=== PATIENT | male | born 1990 | race Caucasian/White ===

== ENCOUNTER 2016-12-08 00:42 | Emergency (ER) | payer SELFPAY ==
[~2016-12-08] VITALS: Ht 167.6 cm; Wt 75.4 kg
[~2016-12-08 00:42] MED LIST: AMOXICILLIN500 M1 OR; AMOXICILLIN500 MG PO; DENIES CURRENT MEDS; LORTAB 1010 MG PO
[2016-12-08 01:52] LABS: HEMATOCRIT 43.5 % (39.0-50.0); HEMOGLOBIN 15.7 g/dl (14.0-18.0); IMMATURE GRANULOCYTES 0.2 % (0.0-1.0); MEAN CELL VOLUME 90.6 fL CALC (80.0-100.0); MEAN CORPUSCULAR HGB 32.7 pG CALC (26.0-32.0); MEAN CORPUSCULAR HGB CONC 36.1 g/L CALC (32.0-36.0); NEUT# 4.22 thou/uL (1.82-7.42); RED BLOOD COUNT 4.8 mill/uL (4.70-6.10); RED CELL DISTRI WIDTH 12.1 % (11.5-15.5)
[2016-12-08 01:53] LABS: URINE BILIRUBIN - DIPSTICK NEGATIVE (NEGATIVE); URINE BLOOD DIPSTICK NEGATIVE (NEGATIVE); URINE CLARITY CLEAR; URINE COLOR YELLOW; URINE GLUCOSE - DIPSTICK NEGATIVE (NEGATIVE); URINE KETONE NEGATIVE (NEGATIVE); URINE LEUK ESTERASE NEGATIVE (NEGATIVE); URINE NITRITE - DIPSTICK NEGATIVE (Negative); URINE PROTEIN - DIPSTICK NEGATIVE (NEG-TRACE); URINE SPECIFIC GRAVITY <=1.005; URINE UROBILINOGEN - DIPSTICK 0.2 E.U./dL (0.2)
[2016-12-08 01:59] LABS: BARBITURATES NEGATIVE (NEGATIVE); COCAINE NEGATIVE (NEGATIVE); METHADONE NEGATIVE (NEGATIVE); OXCYCODONE NEGATIVE (NEGATIVE); TETRAHYDROCANNABIONOL NEGATIVE (NEGATIVE); TRICYLIC ANTIDEPRESSANTS NEGATIVE (NEGATIVE)
[2016-12-08 02:00] LABS: ALBUMIN 4.4 g/dL (3.2-5.0); ALKALINE PHOSPHATASE 36 u/l (38-126); ANION GAP 17 (6-22 (CALC)); BILIRUBIN, TOTAL 0.7 mg/dL (0.0-1.4); BUN 11 mg/dL (9-20); BUN/CREATININE RATIO 14 (12-20 (CALC)); CALCIUM 9.4 mg/dL (8.4-10.2); CARBON DIOXIDE 27 mmol/l (22-30); CHLORIDE 103 mmol/l (95-108); CREATININE 0.8 mg/dL (0.7-1.3); GFR > 60 ML/MIN (>=60 (CALC)); GFR FOR AFR.AMER. > 60 ML/MIN (>=60 (CALC)); GLUCOSE 98 mg/dL (75-110); POTASSIUM 3.7 mmol/l (3.5-5.1); SGOT/AST 22 u/l (17-59); SGPT/ALT 57 u/l (21-72); SODIUM 144 mmol/l (137-146)
[2016-12-08 02:01] LABS: ETHYL ALCOHOL < 10 mg/dl (0-30)
[2016-12-08 05:28] VITALS: BP 110/48
== END 2016-12-08 05:35 | DRG 880 ==
LOC: ED 00:42
PROVIDERS: Emergency Medicine
DX: R45.851 Suicidal ideations (principal); F32.9 Major depressive disorder, single episode, unspecified; E05.90 Thyrotoxicosis, unspecified without thyrotoxic crisis or storm; F17.210 Nicotine dependence, cigarettes, uncomplicated

== ENCOUNTER 2018-12-19 12:06 | Emergency (ER) | payer SELFPAY ==
[~2018-12-19] VITALS: Ht 167.6 cm; Wt 70.0 kg
[2018-12-19] MEDS ORDERED: MEDDOSEPAK PO ×2 (13:38→13:51)
[2018-12-19 13:52] VITALS: BP 118/64
== END 2018-12-19 13:52 | disposition home or self-care (01) | DRG 552 ==
LOC: ED 12:06
DX: S32.019A Unspecified fracture of first lumbar vertebra, initial encounter for closed fracture (principal); F17.200 Nicotine dependence, unspecified, uncomplicated; W18.30XA Fall on same level, unspecified, initial encounter

== ENCOUNTER 2019-09-24 01:23 | Emergency (ER) | payer SELFPAY ==
[~2019-09-24] VITALS: Ht 167.6 cm; Wt 77.2 kg
[~2019-09-24 01:23] MED LIST changes: +MEDDOSEPAK PO
[2019-09-24 01:35] VITALS: BP 152/72
[2019-09-24] MEDS ORDERED: BACTRIM DS1 TAB PO (01:52)
== END 2019-09-24 02:00 | disposition home or self-care (01) | DRG 603 ==
LOC: ED 01:23
DX: L03.116 Cellulitis of left lower limb (principal); F15.10 Other stimulant abuse, uncomplicated; F17.210 Nicotine dependence, cigarettes, uncomplicated; Z86.14 Personal history of Methicillin resistant Staphylococcus aureus infection

== ENCOUNTER 2019-10-21 01:50 | Emergency (ER) | payer SELFPAY ==
[~2019-10-21] VITALS: Ht 167.6 cm; Wt 72.7 kg
[~2019-10-21 01:50] MED LIST changes: +BACTRIM DS1 TAB PO
[2019-10-21 02:30] LABS: HEMATOCRIT 44.2 % (39.0-50.0); HEMOGLOBIN 14.8 g/dl (14.0-18.0); IMMATURE GRANULOCYTES 0.4 % (0.0-5.0); MEAN CELL VOLUME 90.4 fL CALC (80.0-100.0); MEAN CORPUSCULAR HGB 30.3 pG CALC (26.0-32.0); MEAN CORPUSCULAR HGB CONC 33.5 g/dL CAL (32.0-36.0); NEUT# 5.57 thou/uL (1.82-7.42); RED BLOOD COUNT 4.89 mill/uL (4.70-6.10); RED CELL DISTRI WIDTH 12.6 % (11.5-15.5)
[2019-10-21 02:44] LABS: ALBUMIN 4.5 g/dL (3.2-5.0); ALKALINE PHOSPHATASE 47 u/l (38-126); ANION GAP 14 (6-22 (CALC)); BILIRUBIN, TOTAL 0.7 mg/dL (0.0-1.4); BUN 14 mg/dL (9-20); BUN/CREATININE RATIO 18 (12-20 (CALC)); CARBON DIOXIDE 28 mmol/l (22-30); CHLORIDE 102 mmol/l (95-108); CREATININE 0.8 mg/dL (0.7-1.3); ETHYL ALCOHOL 0 mg/dl (0-30); GFR > 60 ML/MIN (>=60 (CALC)); GFR FOR AFR.AMER. > 60 ML/MIN (>=60 (CALC)); POTASSIUM 3.8 mmol/l (3.5-5.1); SGOT/AST 24 u/l (17-59); SODIUM 140 mmol/l (137-146); TOTAL PROTEIN 7.7 g/dL (6.3-8.2)
[2019-10-21 05:30] VITALS: BP 115/68
[2019-10-21] MEDS ORDERED: TAMSULOSIN0.4 MG PO ×3 (14:44→16:07)
[2019-10-21] MEDS ORDERED: HYDROCO/APAP1 TA9 PO ×2 (14:44→17:22)
== END 2019-10-21 05:30 | disposition home or self-care (01) | DRG 552 ==
LOC: ED 01:50
PROVIDERS: Family Medicine
DX: M54.5 Low back pain (principal); N13.2 Hydronephrosis with renal and ureteral calculous obstruction; F17.200 Nicotine dependence, unspecified, uncomplicated; R10.9 Unspecified abdominal pain
CPT/HCPCS: Q9967

== ENCOUNTER 2019-10-21 10:58 | Emergency (ER) | payer SELFPAY ==
[~2019-10-21] VITALS: Ht 167.6 cm; Wt 70.0 kg
[2019-10-21 12:39] LABS: HEMATOCRIT 44.2 % (39.0-50.0); HEMOGLOBIN 14.7 g/dl (14.0-18.0); IMMATURE GRANULOCYTES 0.5 % (0.0-5.0); MEAN CELL VOLUME 91.7 fL CALC (80.0-100.0); MEAN CORPUSCULAR HGB 30.5 pG CALC (26.0-32.0); MEAN CORPUSCULAR HGB CONC 33.3 g/dL CAL (32.0-36.0); NEUT# 9.37 thou/uL (1.82-7.42); RED BLOOD COUNT 4.82 mill/uL (4.70-6.10); RED CELL DISTRI WIDTH 12.5 % (11.5-15.5)
[2019-10-21 12:54] LABS: ALBUMIN 4.3 g/dL (3.2-5.0); ALKALINE PHOSPHATASE 47 u/l (38-126); ANION GAP 11 (6-22 (CALC)); BILIRUBIN, TOTAL 0.6 mg/dL (0.0-1.4); BUN 15 mg/dL (9-20); BUN/CREATININE RATIO 17 (12-20 (CALC)); CARBON DIOXIDE 26 mmol/l (22-30); CHLORIDE 104 mmol/l (95-108); CREATININE 0.8 mg/dL (0.7-1.3); GFR > 60 ML/MIN (>=60 (CALC)); GFR FOR AFR.AMER. > 60 ML/MIN (>=60 (CALC)); LIPASE 357 u/l (23-300); POTASSIUM 4.1 mmol/l (3.5-5.1); SGOT/AST 22 u/l (17-59); SODIUM 137 mmol/l (137-146); TOTAL PROTEIN 7.5 g/dL (6.3-8.2)
[2019-10-21] MEDS ORDERED: TAMSULOSIN0.4 MG PO ×3 (14:44→16:07)
[2019-10-21] MEDS ORDERED: HYDROCO/APAP1 TA9 PO ×2 (14:44→17:22)
[2019-10-21 15:57] VITALS: BP 155/73
== END 2019-10-21 15:54 | disposition home or self-care (01) | DRG 694 ==
LOC: ED 10:58
PROVIDERS: Family Medicine
DX: N13.2 Hydronephrosis with renal and ureteral calculous obstruction (principal); F17.200 Nicotine dependence, unspecified, uncomplicated
CPT/HCPCS: Q9967

== ENCOUNTER 2022-04-12 08:07 | Emergency (ER) | payer SELFPAY ==
[~2022-04-12] VITALS: Ht 167.6 cm; Wt 90.0 kg
[~2022-04-12 08:07] MED LIST changes: +HYDROCO/APAP1 TA9 PO; +TAMSULOSIN0.4 MG PO
[2022-04-12 09:30] VITALS: BP 110/70
[2022-04-12 09:37] VITALS: BP 110/70
[2022-04-12] MEDS ORDERED: AMOX/K CLAV875 M1 PO (09:45)
== END 2022-04-12 10:00 | disposition home or self-care (01) | DRG 145 ==
LOC: ED 08:07
PROC: 0W320ZZ Control Bleeding in Face, Open Approach (ICD-10-PCS; principal; 2022-04-12)
DX: S01.511A Laceration without foreign body of lip, initial encounter (principal); X58.XXXA Exposure to other specified factors, initial encounter

== ENCOUNTER 2022-08-15 22:33 | Emergency (ER) | payer SELFPAY ==
[~2022-08-15] VITALS: Ht 167.6 cm; Wt 99.0 kg
[~2022-08-15 22:33] MED LIST changes: +AMOX/K CLAV875 M1 PO
[2022-08-15 22:44] VITALS: BP 136/77
[2022-08-15 23:00] VITALS: BP 132/80
[2022-08-15] MEDS ORDERED: ALLERGRA (23:59)
[2022-08-16] MEDS ORDERED: OLANZAPINE5 MG PO
== END 2022-08-15 23:17 | disposition left against medical advice (07) | DRG 605 ==
LOC: ED 22:33
DX: S41.012A Laceration without foreign body of left shoulder, initial encounter (principal); W22.09XA Striking against other stationary object, initial encounter; Y93.89 Activity, other specified; Y92.821 Forest as the place of occurrence of the external cause; F17.200 Nicotine dependence, unspecified, uncomplicated; Z53.29 Procedure and treatment not carried out because of patient's decision for other reasons

== ENCOUNTER 2024-03-06 05:01 | Emergency (ER) | payer SELFPAY ==
[~2024-03-06 05:01] MED LIST changes: +ALLERGRA; +CLINDAMYCIN300 M1 PO; +OLANZAPINE5 MG PO
== END 2024-03-06 05:44 | disposition left against medical advice (07) | DRG 951 ==
LOC: ED 05:01 → LWOBS 05:44
DX: Z53.21 Procedure and treatment not carried out due to patient leaving prior to being seen by health care provider (principal)

== ENCOUNTER 2024-03-27 06:46 | Emergency (ER) | payer SELFPAY ==
[2024-03-27] VITALS (13 sets, daily range): BP systolic 85–139; BP diastolic 37–79
[~2024-03-27] VITALS: Ht 167.6 cm; Wt 81.6 kg
[2024-03-27] MEDS ORDERED: SODIUM CHLORIDE 0.9% 1,000 ML IV ONE ×2 (07:10→08:05)
[2024-03-27] MEDS ORDERED: KETOROLAC TROMETHAMINE 15 MG/ML SDV IV ONE (07:10)
[2024-03-27 07:51] LABS: BASO% 0.2 % (0-3); EOS% 3.9 % (0-8); HEMATOCRIT 40.7 % (39.0-50.0); HEMOGLOBIN 13.4 g/dl (14.0-18.0); IMMATURE GRANULOCYTES 0.5 % (0.0-5.0); LYMPH% 20.6 % (15-41); MEAN CELL VOLUME 92.9 fL CALC (80.0-100.0); MEAN CORPUSCULAR HGB 30.6 pG CALC (26.0-32.0); MEAN CORPUSCULAR HGB CONC 32.9 g/dL CAL (32.0-36.0); MONO% 12.8 % (2-13); NEUT# 2.71 thou/uL (1.82-7.42); RED BLOOD COUNT 4.38 mill/uL (4.70-6.10); RED CELL DISTRI WIDTH 12.8 % (11.5-15.5)
[2024-03-27 08:22] LABS: ALBUMIN 3.9 g/dL (3.2-5.0); BILIRUBIN, TOTAL 0.7 mg/dL (0.2-1.3); CREATININE 0.8 mg/dL (0.7-1.3); POTASSIUM 3.4 mmol/l (3.5-5.1)
[2024-03-27] MEDS ORDERED: DEXAMETHASON6 MG PO (08:36)
[2024-03-27] MEDS ORDERED: PENICILLIN G BENZATHINE 1.2 MU/2 ML SYR IM ONE (09:15)
== END 2024-03-27 09:59 | disposition home or self-care (01) | DRG 866 ==
LOC: ED 06:46
PROVIDERS: Family Medicine
DX: B27.90 Infectious mononucleosis, unspecified without complication (principal); A51.39 Other secondary syphilis of skin; F17.200 Nicotine dependence, unspecified, uncomplicated; Z20.822 Contact with and (suspected) exposure to COVID-19
CPT/HCPCS: J0561; J1100; J1885

== ENCOUNTER 2024-05-05 20:02 | Emergency (ER) | payer SELFPAY ==
[~2024-05-05] VITALS: Ht 167.6 cm; Wt 81.6 kg
[~2024-05-05 20:02] MED LIST changes: +DEXAMETHASON6 MG PO
[2024-05-05] MEDS ORDERED: ACETAMINOPHEN 500 MG TAB PO ONE (21:10)
[2024-05-05] MEDS ORDERED: ASPIRIN 81 MG/TAB PO ONE (21:10)
[2024-05-05] MEDS ORDERED: KETOROLAC TROMETHAMINE 30 MG/ML SDV IM ONE (21:10)
[2024-05-05 21:35] LABS: BASO% 0.4 % (0-3); EOS% 4.1 % (0-8); HEMATOCRIT 43.3 % (39.0-50.0); HEMOGLOBIN 14.5 g/dl (14.0-18.0); IMMATURE GRANULOCYTES 0.2 % (0.0-5.0); LYMPH% 21.5 % (15-41); MEAN CELL VOLUME 91.5 fL CALC (80.0-100.0); MEAN CORPUSCULAR HGB 30.7 pG CALC (26.0-32.0); MEAN CORPUSCULAR HGB CONC 33.5 g/dL CAL (32.0-36.0); MONO% 7.2 % (2-13); NEUT# 6.77 thou/uL (1.82-7.42); NEUT% 66.6 % (42-76); RED BLOOD COUNT 4.73 mill/uL (4.70-6.10); RED CELL DISTRI WIDTH 13.4 % (11.5-15.5)
[2024-05-05 21:49] LABS: ACT PARTIAL THROMBO TIME 29.9 SECONDS (20.0-32.5); D-DIMER 2.1 mg/L (0.19-0.60)
[2024-05-05 21:50] LABS: ALBUMIN 4.1 g/dL (3.2-5.0); ALKALINE PHOSPHATASE 41 u/l (38-126); ANION GAP 9 (6-22 (CALC)); BILIRUBIN, TOTAL 0.7 mg/dL (0.2-1.3); BUN 13 mg/dL (9-20); BUN/CREATININE RATIO 15 (12-20 (CALC)); CARBON DIOXIDE 31 mmol/l (22-30); CHLORIDE 103 mmol/l (95-108); CREATININE 0.8 mg/dL (0.7-1.3); ESTIMATED GFR 120 ML/MIN (>=90 (CALC)); POTASSIUM 3.9 mmol/l (3.5-5.1); PROTHROMBIN TIME 10.5 SECONDS (9.0-12.5); SGOT/AST 30 u/l (17-59); SODIUM 139 mmol/l (137-146); TOTAL PROTEIN 7.4 g/dL (6.3-8.2)
[2024-05-05 22:01] VITALS: BP 121/71
[2024-05-05 22:30] VITALS: BP 120/67
[2024-05-05 23:00] VITALS: BP 108/55
[2024-05-05 23:30] VITALS: BP 101/50
[2024-05-05] MEDS ORDERED: APIXABAN BASE 5 MG TAB PO ONE (23:45)
[2024-05-05] MEDS ORDERED: ELIQUIS5 MG PO (23:45)
[2024-05-06] VITALS: BP 95/50
[2024-05-06 00:11] VITALS: BP 95/50
== END 2024-05-06 00:11 | disposition home or self-care (01) | DRG 176 ==
LOC: ED 20:02
PROVIDERS: Family Medicine
DX: I26.99 Other pulmonary embolism without acute cor pulmonale (principal); E05.90 Thyrotoxicosis, unspecified without thyrotoxic crisis or storm; F17.210 Nicotine dependence, cigarettes, uncomplicated
CPT/HCPCS: Q9967